=== PATIENT | female | born 1955 | race Native Hawaiian/Other Pacific Islander ===

== ENCOUNTER 2018-08-26 17:52 | Emergency (ER) | payer OTHER ==
[~2018-08-26] VITALS: Ht 160 cm; Wt 102.1 kg
[2018-08-26 18:05] VITALS: BP 102/75; TEMP 97.6
[2018-08-26 18:27] LABS: PLATELET COUNT 143 K/uL (152-353)
[2018-08-26 18:56] LABS: POTASSIUM 2.5 mmol/L (3.6-5.2)
[2018-08-27] MEDS ORDERED: LEVO0.1224 PO (02:00)
[2018-08-27] MEDS ORDERED: FURO40TA93 PO (02:00)
[2018-08-27] MEDS ORDERED: CARV12.5 PO (02:01)
[2018-08-27] MEDS ORDERED: EZET10TA13 PO (02:01)
[2018-08-27] MEDS ORDERED: APIX1TAB PO (02:02)
[2018-08-27] MEDS ORDERED: LEVEMIR FL100 UNIT/M SC (02:03)
[2018-08-27] MEDS ORDERED: PROVENTIL INH (02:03)
[2018-08-27] MEDS ORDERED: FLUTMIS14 INH (02:05)
== END 2018-08-26 19:05 | disposition still patient (30) ==
LOC: ED 17:52
PROVIDERS: Hospitalist
DX: F32.89 Other specified depressive episodes (principal); F31.89 Other bipolar disorder; I48.91 Unspecified atrial fibrillation; I44.4 Left anterior fascicular block; Z04.6 Encounter for general psychiatric examination, requested by authority
CPT/HCPCS: 80053; 85027; 93005; 99285

== ENCOUNTER 2018-09-15 01:17 | Emergency (ER) | payer OTHER ==
[~2018-09-15] VITALS: Ht 160 cm; Wt 102.5 kg
[~2018-09-15 01:17] MED LIST: APIX1TAB PO; CARV12.5 PO; EZET10TA13 PO; FLUTMIS14 INH; FURO40TA93 PO; LEVEMIR FL100 UNIT/M SC; LEVO0.1224 PO; PROVENTIL INH
[2018-09-15 02:10] LABS: PLATELET COUNT 139 K/uL (152-353)
[2018-09-15 02:26] LABS: SODIUM 127 mmol/L (136-145)
[2018-09-15 02:28] LABS: POTASSIUM 6.6 mmol/L (3.6-5.2)
[2018-09-15 10:20] LABS: POTASSIUM 5.8 mmol/L (3.6-5.2)
[2018-09-15 11:07] VITALS: BP 99/69; TEMP 98
[2018-09-15] MEDS ORDERED: CHOL4POW11 PO (12:52)
[2018-09-15] MEDS ORDERED: ESCI10TA PO (12:55)
[2018-09-15] MEDS ORDERED: MAGN400T4 PO (12:57)
[2018-09-15] MEDS ORDERED: RISP0.25 PO (12:58)
== END 2018-09-15 11:07 ==
LOC: ED 01:17
PROVIDERS: Family Medicine
PROC: 06HM33Z Insertion of Infusion Device into Right Femoral Vein, Percutaneous Approach (ICD-10-PCS; principal; 2018-09-15)
PROC: 0T9B70Z Drainage of Bladder with Drainage Device, Via Natural or Artificial Opening (ICD-10-PCS; 2018-09-15)
DX: A41.9 Sepsis, unspecified organism (principal); K85.80 Other acute pancreatitis without necrosis or infection; K29.80 Duodenitis without bleeding; N17.9 Acute kidney failure, unspecified; E87.8 Other disorders of electrolyte and fluid balance, not elsewhere classified; E87.5 Hyperkalemia; E87.1 Hypo-osmolality and hyponatremia; N39.0 Urinary tract infection, site not specified; R06.02 Shortness of breath
CPT/HCPCS: 36415; 36558; 36600; 51702; 80053; 81000; 82150; 82550; 82553; 82805; 83605; 83690; 83880; 84484; 85007; 85027; 85379; 85610; 85730; 87077; 87086; 87088; 87186; 93005; 96360; 96361; 96365; 96366; 99285; C1768; J0696; J1265